=== PATIENT | male | born 1985 | race African-American/Black ===

== ENCOUNTER 2018-09-17 23:00 | Emergency (ER) | payer SELFPAY ==
[~2018-09-17] VITALS: Ht 180.3 cm; Wt 75.0 kg
--- NOTE | 2018-09-18 00:05 | NUR ---
PT TO RM FROM [facility]. XRAY RESULTED. AWAITING ERP EVAL.
--- NOTE | 2018-09-18 00:21 | NUR ---
ERP IN TO EVAL. AWAITING FURTHER DISPO.
[2018-09-18] MEDS ORDERED: LIDOCAINE-MPF 1%, 5ML ONE (00:57)
[2018-09-18] MEDS ORDERED: LIDOCAINE 1%, 10ML INFIL ONE (01:00)
[2018-09-18] MEDS ORDERED: ACETAMINOPHEN 500 MG TABLET ONE (01:29)
[2018-09-18] MEDS ORDERED: IBUPROFEN 600 MG TABLET ONE (01:29)
[2018-09-18] MEDS ORDERED: IBUPROFEN 600 MG TABLET PO ONE (01:30)
[2018-09-18] MEDS ORDERED: ACETAMINOPHEN 500 MG TABLET PO ONE (01:30)
[2018-09-18 01:42] VITALS: BP 118/71
== END 2018-09-18 01:47 | disposition home or self-care (01) ==
LOC: ED 09-18 01:41
DX: S60.021A Contusion of right index finger without damage to nail, initial encounter (principal); Z88.5 Allergy status to narcotic agent; X58.XXXA Exposure to other specified factors, initial encounter; Y93.89 Activity, other specified; Y92.008 Other place in unspecified non-institutional (private) residence as the place of occurrence of the external cause; Y99.8 Other external cause status
CPT/HCPCS: 29125; 99283

== ENCOUNTER 2018-09-21 08:56 | Emergency (ER) | payer MEDICAID, OTHER ==
[~2018-09-21] VITALS: Ht 180.3 cm; Wt 75.4 kg
[2018-09-21 09:07] VITALS: BP 129/75
--- NOTE | 2018-09-21 09:21 | NUR ---
PT'S RIGHT HAND SPLINTED. RIGHT INDEX FINGER PAIN. STATES [employer]BUPROF[employer] NOT WORKING FOR PAIN AND THAT ORTHO REFERRAL GIVEN NOT ABLE TO SEE HIM FOR SOME TIME.
== END 2018-09-21 09:33 | disposition home or self-care (01) ==
LOC: ED 09:26
DX: S69.91XA Unspecified injury of right wrist, hand and finger(s), initial encounter (principal); Y04.0XXA Assault by unarmed brawl or fight, initial encounter; Y93.89 Activity, other specified; Y92.009 Unspecified place in unspecified non-institutional (private) residence as the place of occurrence of the external cause; Y99.8 Other external cause status
CPT/HCPCS: 99281; 99282